=== PATIENT | female | born 1990 | race Caucasian/White ===

== ENCOUNTER 2021-01-05 09:07 | Emergency (ER) | payer OTHER ==
[~2021-01-05] VITALS: Ht 165.1 cm; Wt 90.7 kg
[2021-01-05 11:21] LABS: HEMOGLOBIN 15.1 gm/dl (12.3-15.3); RED BLOOD COUNT 5.71 M/UL (4.00-5.10); WHITE BLOOD COUNT 5.2 K/UL (4.5-11.0)
[2021-01-05 11:53] LABS: BUN/CREATININE RATIO 14 (0-10)
[2021-01-05] MEDS ORDERED: AZITHROMYCIN250 MG PO (13:55)
[2021-01-05] MEDS ORDERED: VENTOLIN HFA 66.7 GM INH (13:55)
== END 2021-01-05 14:30 | disposition home or self-care (01) ==
LOC: ER1 09:07
PROVIDERS: Emergency Medicine
DX: U07.1 COVID-19 (principal); J12.82 Pneumonia due to coronavirus disease 2019; Z23 Encounter for immunization
CPT/HCPCS: 36600; 71045; 80053; 81001; 82550; 82553; 82803; 83874; 84484; 84703; 85025; 85379; 94640; 94664; 94760; 96374; 99283; J2405; M0243; U0002